=== PATIENT | male | born 1940 ===

== ENCOUNTER 2021-01-07 07:15 | Inpatient (IN) | payer OTHER ==
[~2021-01-07] VITALS: Ht 180.3 cm; Wt 84.8 kg
[2021-01-07] MEDS ORDERED: CARVEDILOL25 MG (09:42)
[2021-01-07] MEDS ORDERED: PROCARDIA XL90 MG PO (09:42)
[2021-01-07] MEDS ORDERED: ACCUPRIL40 MG PO (09:42)
[2021-01-07] MEDS ORDERED: [UNRECOGNIZED DRUG - OTHER] PO (09:43)
[2021-01-07] MEDS ORDERED: ZOCOR40 MG PO (09:43)
[2021-01-07] MEDS ORDERED: TAMS0.4C PO (09:44)
[2021-01-11] MEDS ORDERED: LONITEN10 MG (08:04)
[2021-01-11] MEDS ORDERED: QUINAPRIL HCL40 MG (08:05)
== END 2021-01-19 09:16 | disposition designated cancer center or children's hospital (05) | DRG 656 ==
LOC: SURG 01-11 05:30 → O/R 01-11 05:30 → SURH 01-11 07:00 → SURG 01-11 12:54
PROVIDERS: ADMIT Urology; ATTEND Urology
PROC: B24BZZZ Ultrasonography of Heart with Aorta (ICD-10-PCS; 2021-01-10)
PROC: 0TT04ZZ Resection of Right Kidney, Percutaneous Endoscopic Approach (ICD-10-PCS; principal; 2021-01-11 07:00)
DX: C64.1 Malignant neoplasm of right kidney, except renal pelvis (principal); J18.9 Pneumonia, unspecified organism; I69.351 Hemiplegia and hemiparesis following cerebral infarction affecting right dominant side; J95.89 Other postprocedural complications and disorders of respiratory system, not elsewhere classified; J98.11 Atelectasis; I31.3 Pericardial effusion (noninflammatory); I10 Essential (primary) hypertension